=== PATIENT | female | born 1940 | race Caucasian/White ===

== ENCOUNTER 2016-06-10 12:09 | Observation (INO) | payer MEDICARE, BC ==
--- OUTSIDE RECORDS SUMMARY | 2016-06-10 12:13 | XMS REPORT | Continuity of Care Document ---
:1940 Author Organization [employer] [place] [address] Care Team Providers Name Role Phone Rob Rosendo Gloria Primary Care Provider [phone] Source Comments This disclosure is being made pursuant to the [employer] program and maynot contain all information available regarding this patient.[facility] [facility] Active Allergies and Adverse Reactions Allergen Noted Date Severity Reactions Comments Codeine 12/27/2013 Medium Nausea And Vomiting Dilaudid 12/27/2013 Medium Nausea And Vomiting Vioxx 12/27/2013 Low Palpitations Current Medications Be aware that medications may not be up to date as of this document. Alwaysverify current medications with the patient. Prescription Sig. Disp. Refills Start Date End Date Status albuterol (VENTOLIN HFA) Inhale 1-2 puffs Active 108 (90 BASE) MCG/ACT into the lungs inhaler every 6 (six) hours as needed. Calcium Carbonate-Vitamin Take 1 tablet by Active D (CALCIUM-VITAMIN D) mouth daily. 600-200 MG-UNIT CAPS dimenhyDRINATE (DRAMAMINE) Take 1 tablet by Active 50 MG tablet mouth daily as needed. 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 Overview: Overview: GABY RAMSAY DO Most Recent Encounters Date Type Specialty Providers Description 03/14/2016 Data Import Social History Tobacco Use Types Packs/Day Years Used Date Former Smoker Last Filed Vital Signs Vital Sign Reading Time Taken Blood Pressure 132/84 06/06/2014 2:34 PM CDT Pulse 76 06/06/2014 2:34 PM CDT Temperature 37.1 C (98.7 F) 06/24/2012 9:38 AM CDT Respiratory Rate 20 01/07/2014 10:35 AM CDT Height 1.575 m (5' 2") 06/06/2014 2:34 PM CDT Weight 56.881 kg (125 lb 6.4 oz) 06/06/2014 2:34 PM CDT Body Mass Index 22.93 06/06/2014 2:34 PM CDT Oxygen Saturation - - Plan of Care Health Maintenance Due Date Last Done Comments Tetanus/Pertussis (1 - Tdap) 1960 Mammogram 07/17/1991 Well Adult Visit 07/17/1991 Zoster Vaccine 60+ 2001 Pneumococcal Low/Medium Risk 65+ (1 of 2 - 2006 PCV13) Influenza Immunization (#1) 2015 Colonoscopy 08/26/2022 08/26/2012, 06/28/2009 Bone Density Completed 07/03/2011 Results from Last 3 Months Not on file
[2016-06-10] MEDS ORDERED: NORMAL SALINE 1,000 ML IV STA (12:15)
[2016-06-10 12:39] LABS: Hematocrit 42.4 % (37.0-47.0); Hemoglobin 13.9 gm/dL (12.5-16.0); Mean Cell Volume 90.6 fl (78-100); Mean Corpuscular Hemoglobin 29.7 pg (27-31); Mean Corpuscular Hgb Conc 32.8 g/dl (32-36); Mean Platelet Volume 9.6 fl (6.0-9.5); Neutrophil # 4.6 K/mm3 (1.3-6.0); Neutrophil % 78.9 % (42-75.0); Platelet Count 182 K/mm3 (150-450); Red Blood Count 4.68 M/mm3 (4.2-5.4); White Blood Count 5.8 K/mm3 (4.0-10.5)
[2016-06-10 12:50] LABS: Albumin * 3.5 gm/dl (3.4-5.0); Anion Gap 14.5 mmol/L (6.8-13.8); BUN/Creatinine Ratio 16.5 (9.0-21.6); Bilirubin, Total 0.7 mg/dL (0.0-1.1); Ca. Corrected For Albumin 8.7 mg/dL (8.4-10.2); Calcium * 8.6 mg/dL (7.9-10.9); Potassium 3.5 mmol/L (3.4-4.6); Total Protein 7.2 gm/dL (6.2-8.2)
[2016-06-10] MEDS ORDERED: ACETAMINOPHEN 325 MG TABLET PO PRN (13:12)
[2016-06-10] MEDS: ONDANSETRON HCL/PF 2 MG/ML VIAL IV PRN (13:18)
[2016-06-10] MEDS ORDERED: NORMAL SALINE IV SCH (13:30)
[2016-06-10] MEDS ORDERED: POTASSIUM CHLORIDE IV SCH (13:30)
[2016-06-10] MEDS ORDERED: DEXTROSE 5% IV SCH (13:30)
[2016-06-10] MEDS ORDERED: POTASSIUM CHLORIDE 20 MEQ in DEXTROSE 5%-NORMAL SALINE 990 ML IV SCH (14:00)
--- NOTE | 2016-06-10 16:23 | HP ---
Chief Complaint - Chief Complaint Date of Service: 06/10/16 Time of Service: 16:02 Chief Complaint: vomiting, cough, bodyaches, fever and chills for the last 48 hours. History of Present Illness: Patient is a 75-year-old WF with a history of bilateral mastectomies [2009] who came in because of fever/chills, nausea vomiting and inability to keep food down for the last 24 hours. Patient states she threw up all her foot including clear liquids. She was found to have a HR of 121/m, temp of 38.1 and was positive for influenza A. She was admitted into observation for IV fluids, ondansetron IV etc. - Patient's Past Medical History Patient History - Cardiac/Respiratory: COPD, Hyperlipidemia Patient History - Cancer: Breast - [id number] Patient History - Surgical Procedures: Colonoscopy - 2009-adenoma with low grade dysplasia , Hysterectomy - hemmorhoid surgery., Other - bilateral mastectomies -2009; arthroscopyleft chondroplasty medial femoral condyle 2015. Patient History - Other: None - Family History Brother Family History - Medical: - leukemia Mother Family History - Medical: Family History - Cancer: Breast Sister Family History - Medical: Family History - Cancer: Breast - Social History Living Situations: spouse Psych History: No pertinent hx Smoking Status: Former smoker - 1.5 PPD X 47 years ; quit in 2011. Have you smoked in the past 12 months: No Do you dip or chew tobacco: No Alcohol Use: other - former Drug Use: none - Immunizations Hx Pneumococcal Vaccination: No - refused History of Influenza Vaccine: Yes - 2012 Review Of Systems (GEN) - Review of Systems Generalized/Overall Review: Present: Weakness, Chills, Fever Respiratory: Present: Cough Abdominal: Present: Nausea - all for 2 days, Vomiting Allergies/Adverse Reactions: Allergies Allergy/AdvReac Type Severity Reaction Status Date / Time codeine AdvReac Intermediate Vomiting Verified 06/10/16 12:32 hydromorphone HCl AdvReac Intermediate SEVERE Verified 06/10/16 12:32 [From Dilaudid] TREMORS montelukast AdvReac Mild DIZZINESS Verified 06/10/16 12:32 rofecoxib [From Vioxx] AdvReac Mild Shortness Verified 06/10/16 12:32 of Breath tramadol AdvReac Mild MADE Verified 06/10/16 12:32 DIZZINESS WORSE Home Medications: HOME MEDICATIONS Ibuprofen [Motrin] 600 mg PO BID PRN 01/15/16 [Last Taken Unknown] Meclizine HCl [Antivert] 25 mg PO QID PRN 01/15/16 [Last Taken Unknown] Fluticasone Propionate [Flovent Hfa] 1 puff INH BID 06/10/16 [Last Taken Unknown ] Ondansetron [Zofran Odt] 8 mg PO Q12H PRN 06/10/16 [Last Taken Unknown] Exam - Exam Vital Signs: Vital Signs - Last Taken Temp 38.1 C H 06/10/16 12:42 Pulse 122 H 06/10/16 12:42 Resp 20 06/10/16 12:42 BP 132/67 06/10/16 12:42 Pulse Ox 96 06/10/16 12:42 Constitutional: Present: Elderly, Thin and frail, Looks Older than stated age ENT Exam: Present: TM dull, pharyngeal erythema, dry mucous membranes Eye Exam: bilateral eye: PERRL, EOMI Neck: Present: supple, trachea midline Breasts: Present: Exam deferred Respiratory: Present: normal breath sounds, wheezing - minimal. Absent: no accessory muscle use Cardiovascular/Chest: Present: tachycardia Peripheral Pulses: carotid (R): 2+, carotid (L): 2+ Abdomen: Present: Normal bowel sounds, soft, nontender, nondistended Extremity: Present: normal range of motion, non-tender, normal inspection Skin Exam: Present: normal color, warm/dry Neurologic: Present: alert, oriented x 3 Eye contact: Present: cooperative, good eye contact, normal speech Diagnostic Studies: Laboratory Tests 06/10/16 12:30 WBC 5.8 Hgb 13.9 Hct 42.4 Plt Count 182 06/10/16 12:30 Plasma Sodium 139 Potassium 3.5 Chloride 102 Carbon Dioxide 26.0 BUN 13 Creatinine 0.79 Est GFR (Non-Af Amer) 76 Random Glucose 116 H Calcium Adj for Albumin 8.7 Total Bilirubin 0.7 AST 21 ALT 24 Alkaline Phosphatase 68 Total Protein 7.2 Albumin 3.5 CXR:PA lateral: 06/10/2016: 15:58. Hyperinflated lung volumes stable. No consolidation/mass. No pneumothorax/putrid fluid collections. Stable central bronchial wall prominence. Trachea is in normal position. Cardiac and mediastinal silhouettes are normal. DJD of spine. IMPRESSION: 1. No focal acute cardiopulmonary finding. 2. Stable findings compatible with acute/chronic bronchitis or reactive airway disease. Also consider COPD if the patient has significant history of smoking. Assessment/Plan - Narrative Narrative: 1. Nausea and vomiting due to influenza A: Normal saline 1 L bolus followed by D5NS with 20 KCl at 200 mL an hour. Ondansetron 4 mg IV every 4 hours as needed. 2. Influenza A: Tamiflu 75 mg PO BID. supportive treatment with acetaminophen 650 mg every 4 hours as needed. Clear liquids at suppertime; advance as tolerated. 3. Bilateral breast cancer: S/P Bilateral mastectomies 2009. 4. 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 Expected stay one midnight. Possible discharge on 06/11/2016.
[2016-06-10] MEDS: OSELTAMIVIR PHOSPHATE 75 MG CAPSULE PO SCH (16:38)
[2016-06-10] MEDS: DEXTROSE 5%-NORMAL SALINE 1,000 ML IV PRN (19:07)
[2016-06-10] MEDS: ACETAMINOPHEN 325 MG TABLET PO PRN ×2 (19:26→23:43)
[2016-06-11] MEDS: OSELTAMIVIR PHOSPHATE 75 MG CAPSULE PO SCH (05:10)
[2016-06-11] MEDS: DEXTROSE 5%-NORMAL SALINE 1,000 ML IV PRN ×2 (05:15→15:33)
[2016-06-11] MEDS ORDERED: OSELTAMIVIR PHOSPHATE 75 MG CAPSULE PO SCH (06:00)
[2016-06-11] MEDS: ACETAMINOPHEN 325 MG TABLET PO PRN (06:54)
[2016-06-11] MEDS: ONDANSETRON HCL/PF 2 MG/ML VIAL IV PRN (09:26)
[2016-06-11 09:57] LABS: Anion Gap 12.4 mmol/L (6.8-13.8); Calcium * 7.6 mg/dL (7.9-10.9); Carbon Dioxide 23.8 mmol/L (24-32.6); Estimated Creat Clear 58.3; Potassium 3.2 mmol/L (3.4-4.6)
[2016-06-11] MEDS: guaiFENesin/DEXTROMETHORPHAN 118 ML BTL PO SCH ×2 (10:47→15:34)
[2016-06-11] MEDS: ONDANSETRON HCL/PF 2 MG/ML VIAL IV SCH ×2 (10:50→13:56)
[2016-06-11] MEDS ORDERED: traMADol HCL 50 MG TABLET PO PRN (11:58)
[2016-06-11] MEDS ORDERED: ACETAMINOPHEN 325 MG TABLET PO PRN (14:03)
[2016-06-11 14:46] VITALS: BP 110/54
[2016-06-11] MEDS ORDERED: POTASSIUM CHLORIDE 20 MEQ TABLET.SA PO STA (15:58)
--- NOTE | 2016-06-11 16:08 | DS ---
(1) Influenza A Problem: Acute (2) Nausea & vomiting Problem: Acute (3) Bilateral breast cancer Diagnosis(s): S/P mastectomies in 2009. Problem: Chronic Description of Stay: DATE OF ADMISSION: 06/10/2016. DATE OF DISCHARGE: 06/11/2016. HOSPITAL COURSE: Ashley Beaver is a 75-year-old WF with a history of COPD, HLD, S/P bilateral breast cancer who came in to the office because of nausea, vomiting, body aches, fever and chills for the last 24 hours [employer]. She she stated she was unable to keep any food down and threw up several times. She was found to have a T 38.1C, HR 121/m and tested positive for influenza A. Though the patient's labs are normal, she appeared clinically dehydrated. Labs are reviewed and CXR was negative for infiltrate. She was bolused with normal saline 1 L and then given D5NS w/20meq Kcl at 200 mL per hour x 1L followed by D5NSat 100 ml /hr. Patient was given ondansetron 4 mg IV PRN and then every 4 hours on a scheduled basis as she continued to throw up. She was started on oseltamivir 75 mg PO BID. she was also started on Tylenol/ibuprofen for back pain. K+ was 3.2 on . She was given K-Dur 60 mEq 1 prior to discharge. She was discharged in a stable condition with follow-up with PCP in 10-14 days. More than 30 minutes was spent in examination of the patient, plan of care, reconciliation of meds, preparation and dictation of discharge summary. Procedures Performed: none Results and Findings: Laboratory Tests 06/10/16 12:30 WBC 5.8 Hgb 13.9 Hct 42.4 Plt Count 182 06/10/16 06/11/16 12:30 09:45 Plasma Sodium 139 141 Potassium 3.5 3.2 L Chloride 102 107 H Carbon Dioxide 26.0 23.8 L BUN 13 6 D Creatinine 0.79 0.67 Est GFR (Non-Af Amer) 76 91 Random Glucose 116 H 169 H D Calcium Adj for Albumin 8.7 Total Bilirubin 0.7 AST 21 ALT 24 Alkaline Phosphatase 68 Total Protein 7.2 Albumin 3.5 CXR:PA lateral: 06/10/2016: 15:58. Hyperinflated lung volumes stable. No consolidation/mass. No pneumothorax/putrid fluid collections. Stable central bronchial wall prominence. Trachea is in normal position. Cardiac and mediastinal silhouettes are normal. DJD of spine. IMPRESSION: 1. No focal acute cardiopulmonary finding. 2. Stable findings compatible with acute/chronic bronchitis or reactive airway disease. Also consider COPD if the patient has significant history of smoking. Discharge Disposition: Home self care Disposition: Home self-care Condition: Undetermined Discharge Activity: Activity as tolerated Discharge Diet: Low fat/chol, High Fiber Referrals: Rosendo Rivas MD [Primary Care Provider] - Additional Patient Instructions (free text): Take ondansetron [Zofran] 20-30 minutes prior to each meal and pills to minimize nausea and vomiting. Avoid greasy foods initially-> bland diet--> regular diet. Finish complete course of Tamiflu for a period of 5 days[prescription called in to [facility]]. Increase fluid intake. A generic form of Robitussin-DM can be taken for cough. Wear a mask while coughing for at least 48 hours after Tamiflu was started. Droplet precautions. Alternate Tylenol and ibuprofen for back pain. Take as little ibuprofen/Tylenol as possible. Take vitamin D3 2000 units daily WFood for overall immunity, bones etc.[OTC med - Cheaper if bought in a bottle of 100]. Appointment with PCP in 10-14 days. Prescriptions (Any new or edited meds): Acetaminophen [Tylenol] 650 mg PO Q6H PRN #.1 tab PRN Reason: Pain Cholecalciferol (Vitamin D3) [Vitamin D3] 2,000 unit PO DAILY #100 capsule Ibuprofen [Motrin] 400 mg PO BID PRN #.1 tablet PRN Reason: Pain Oseltamivir Phosphate [Tamiflu] 75 mg PO BID #8 capsule Complete Home Medications List: Complete Home Medication List: Meclizine HCl [Antivert] 25 mg PO QID PRN 01/15/16 Fluticasone Propionate [Flovent Hfa] 1 puff INH BID 06/10/16 Ondansetron [Zofran Odt] 8 mg PO Q12H PRN 06/10/16 Acetaminophen [Tylenol] 650 mg PO Q6H PRN #.1 tab 06/11/16 Cholecalciferol (Vitamin D3) [Vitamin D3] 2,000 unit PO DAILY #100 capsule 06/11 Ibuprofen [Motrin] 400 mg PO BID PRN #.1 tablet 06/11/16 Oseltamivir Phosphate [Tamiflu] 75 mg PO BID #8 capsule 06/11/16
== END 2016-06-11 16:45 | disposition home or self-care (01) ==
LOC: MS 12:09
PROVIDERS: ADMIT Internal Medicine; ATTEND Internal Medicine
DX: A08.39 Other viral enteritis (principal); E86.0 Dehydration; J44.9 Chronic obstructive pulmonary disease, unspecified; Z87.891 Personal history of nicotine dependence; E78.5 Hyperlipidemia, unspecified; Z85.3 Personal history of malignant neoplasm of breast
CPT/HCPCS: 36415; 71020; 80048; 80053; 85025; 96361; 96365; 96375; 96376; G0378; G0379